=== PATIENT | female | born 1955 ===

== ENCOUNTER 2025-02-19 09:52 | Outpatient (AMB) | payer MEDICARE, SELFPAY ==
--- OUTSIDE RECORDS SUMMARY | 2025-02-19 11:13 | XMS_ITS | Clinical Summary ---
Author Organization [facility] [address] [place] [address] [place] [phone] Phone Care Team Providers Care Route Driver Salesperson Name Role Phone Doreen Gonzales MD Primary Care Provider [phone] Allergies Active Allergy Reactions Criticality Noted Date Comments Aspirin 11/22/2006 Ciprofloxacin Hcl Other 08/21/2024 Feet burning Lisinopril 08/21/2024 Sulfacetamide Sodium 11/22/2006 Other Reaction(s): Rash/Dermatitis Medications calcium carbonate/zach min D3 (CALCIUM 600 + D,3, ORAL) CALCIUM CARB-CHOLECALCI FEROL (CALCIUM 600 + D OR): Take 600 mg by mouth daily. Active loratadine (CLARITIN ORAL) Take by mouth as needed. Active fluticasone propionate (FLONASE NASL) None Entered Ac tive omega-3 acid ethyl esters (LOVAZA) 1 gram capsule Take 1,000 mg by mouth daily. Active imiquimod (ALDARA) 5 % cream Apply 1 packet topically 5 (five) times a week. 07/22/19 25 Active amLODIPine (NORVASC) 10 mg tablet Take 1 tablet (10 mg total) by mouth 1 (one) time each day. 90 tablet 1 08/21/19 25 Active bisacodyL (DULCOLAX) 5 mg EC tablet Take 2 tablets by mouth right before beginning bowel prep. See instructions provided by the office 2 tablet 09/17/19 25 Active polyethylene glycol (Golytely) 236-22.74-6.74 -5.86 gram solution Take 4L by mouth once for one dose. May substitue any PEG. Starting at 6PM the night before your procedure drink 1 8oz glasses at your own pace until you complete half of the gallon. Finish 2nd half of the gallon 5 hours before your procedure. 4000 mL 09/17/19 25 Active losartan-hydro CHLOROthiazide (HYZAAR) 100-12.5 mg per tablet TAKE 1 TABLET BY MOUTH EVERY DAY 90 tablet 1 01/21/20 25 Active atorvastatin (LIPITOR) 20 mg tablet TAKE 1 TABLET (20 MG TOTAL) BY MOUTH ONE TIME EACH DAY 90 tablet 1 02/14/20 25 Active atorvastatin (LIPITOR) 20 mg tablet Take 1 tablet (20 mg total) by mouth 1 (one) time each day. 90 tablet 1 08/21/19 25 025 Discontinued Active Problems Problem Noted Date Diagnosed Date Basal cell carcinoma 08/21/2024 Allergic rhinitis 08/21/2024 Colon polyp 08/21/2024 Hypercholesterolemia 08/21/2024 Primary hypertension 04/27/2023 Supraventricular tachycardia (CMS/HCC V24) 05/31 Skin cancer 05/31/2021 Overview (04/17/2024): nose Encounters Date Type Department Care Team Description 01/13/2025 Telephone Gastroenterology - [place] [facility] 175 [facility] [address] [place] [address] Nick Rayo DO Special Procedure 12/26/2024 Telephone Adult Medicine [address] [phone] Doreen Gonzales MD Irregular Heart Beat 12/10/2024 1:45 PM EDT - 12/10/2024 11:59 PM EDT Hospital Encounter Radiology Department - [address] [phone] Abnormal mammogram Discharge Disposition: Home or Self Care 11/28/2024 9:38 AM EDT - 11/28/2024 11:59 PM EDT Hospital Encounter Radiology Department - [address] [phone] Encounter for screening mammogram for breast cancer Discharge Disposition: Home or Self Care from Last 3 Months Immunizations Name Administration Dates Next Due COVID-19 (Moderna/Spikevax) 12yo and older 12/11/2022,03/09/2022 Influenza trivalent, 0.5mL ( Fluad) 65yo and older 05/04/2023,03/29/2022,03/14/2021,03/11,04/07/2019 Influenza trivalent, 0.5mL, preservative free (Fluarix; FluLaval; Fluzone) ages 6mo and older (Afluria) 3 years and older 04/05/2018,04/20/2017,04/23/2016,04/20 Pfizer SARS-CoV-2 COVID-19, mRNA, LNP-S, preservative free 03/13/2024 Pneumococcal polysaccharide 23 valent (Pneumovax 23) 2yo and older 08/05/2020 Respiratory syncytial virus (RSV), unspecified 07/13/2023 Td Tetanus diptheria (Tdvax) 7yo and older 12/27/2000 Surgical History Surgery Date Site/Laterality Comments OTHER SURGICAL HISTORY PROCEDURE: 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 TIP/OTH AR UP TO 2 CM; COMMENT: on nose 2004 for skin cancer basal cell OTHER SURGICAL HISTORY PROCEDURE: ARTHROSCOPY PROCEDURE NEC; COMMENT: basal cell ca on ankle BREAST SURGERY PROCEDURE: OK UNLISTED PROCEDURE BREAST; COMMENT: removal of lt sebasceous cyst-scar OTHER SURGICAL HISTORY PROCEDURE: OK GRAFT COMPOSITE W/PRIMARY CLOSURE DONOR AREA; COMMENT: nose, left eye APPENDECTOMY PROCEDURE: OK APPENDECTOMY Medical History Medical History Date Comments Other and unspecified ovarian cyst DX:Other and unspecified ovarian cyst; COMMENT: non malignant Personal history of colonic polyps DX:Personal history of colonic polyps; COMMENT: flat polyp Skin cancer DX:Skin cancer; COMMENT: nose History of other specified c onditions presenting hazards to health DX:History of other speci fied conditions presenting hazards to health; COMMENT: basal cell ca-nose,legs x 2 & face Supraventricular tachycardia (CMS/HCC V24) DX:Supraventricular tachycardia (HCC) Family History Medical History Relation Name Comments Diabetes Father Heart failure Father at 52 Breast cancer Neg Hx Relation Name Status Comments Father Mother Social History Tobacco Use Types Packs/Day Years Used Date Smoking Tobacco: Former Cigarettes Smokeless Tobacco: Never Tobacco Cessation:Counseling Given: Not Answered Alcohol Use Standard Drinks/Week Comments Yes 0 (1 standard drink = 0.6 oz pur e alcohol) Comments Unknown Sex and Gender Information Value Date Recorded Sex Assigned at Not on file Legal Sex Female 2:02 PM EST Gender Identity Not on file Sexual Orientation Not on file Obstetrics History Para Term AB IAB SAB Ectopic Multiple Livin g Live Births 0 0 0 Last Filed Vital Signs Vital Sign Reading Time Taken Comments Blood Pressure 120/70 08/21/2024 10:29 AM EST Pulse 76 08/21/2024 10:29 AM EST Temperature 36.6 C (97.9 F) 08/21/2024 10:29 AM EST Respiratory Rate 14 08/21/2024 10:29 AM EST Oxygen Saturation - - Inhaled Oxygen Concentration - - Weight 71.7 kg (158 lb) 08/21/2024 10:29 AM EST Height 170.2 cm (5' 7 ) 08/21/2024 10:29 AM EST Body Mass Index 24.75 08/21/2024 10:29 AM EST Plan of Treatment Upcoming Encounters Date Type Department Care Team (Late st Contact Info) Description 02/19/2025 2:30 PM EDT Office Visit Adult Medicine [address] [phone] Doreen Gonzales MD [address] [place] [phone] Health Maintenance Due Date Last Done Comments Hepatitis A Vaccines (1 of 2 - Risk 2-dose series) 1972 Hepatitis B Vaccines (1 of 3 - Risk 3-dose series) 2013 RSV Immunization Adult Patients (1 - Risk 60-74 years 1-dose series) 2013 07/13/2023 Zoster Vaccines (2 of 2) 09/20/2018 07/26/2018, 10/2013 Colorectal Cancer Screening: Stool Based Tests (FOBT/FIT) 06/10/2022 Hepatitis C Screening 06/10/2022 Osteoporosis Screening (Bone Density Screening) 06/10/2022 Social Influencers of Health Screening 06/10/2022 DTaP,Tdap,and Td Vaccines (4 - Td or Tdap) 06/06/2023 06/06/2013, 04/26/2003, 12/27/2000 COVID-19 Vaccine ( season) 2024 03/13/2024, 04/09/2023, 12/11/2022, Additional history exists Depression Screening 07/02/2024 07/09/2023 Falls Risk Assessment 07/09/2024 07/09/2023 Medicare Annual Wellness Visit 07/09/2024 07/09/2023 Hypertension/CHF/CAD Annual BMP Blood Test 02/05/2025 02/06/2024, 02/06/2024 Influenza Vaccine (#1) 2025 , 05/04/2023, 03/29/2022, Additional history exists Breast Cancer Screening 12/10/2026 12/11/19, 11/28/2024, 11/19/2023, Additional history exists Cholesterol Screening (Lipid Panel) 02/05/2029 02/06/2024, 02/06/2024 Pneumococcal Vaccine: 50+ Years Completed 08/05/2020, 07/26/2018 RSV Immunization Patients Under 20 months Aged Out 07/13/2023 No longer eligible based on patient's age to complete this topic HIB Vaccines Aged Out No longer eligi ble based on patient's age to complete this topic HPV Vaccines Aged Out No longer eligi ble based on patient's age to complete this topic IPV Vaccines Aged Out No longer eligi ble based on patient's age to complete this topic MMR Vaccines Aged Out No longer eligi ble based on patient's age to complete this topic Meningococcal ACWY Vaccine Aged Out N o longer eligible based on patient's age to complete this topic Meningococcal B Vaccine Aged Out No l onger eligible based on patient's age to complete this topic Varicella Vaccines Aged Out No longer eligible based on patient's age to complete this topic Procedures Procedure Name Priority Date/Time Associated Diagnosis Comments MG MAMMO DIGITAL DIAGNOSTIC W GUSTAVO LEFT Routine 12/10/2024 1:59 PM EDT Abnormal mammogram MG MAMMO DIGITAL SCREENING W GUSTAVO BILAT Routine 11/28/2024 9:49 AM EDT Encounter for screening mammogram for breast cancer ANNUAL BMP BLOOD TEST Routine 02/06/2024 LIPID PANEL Routine 02/06/2024 DEPRESSION SCREENING Routine 07/09/2023 FALLS RISK ASSESSMENT Routine 07/09/2023 from Last 3 Months or Most Recently Relevant to Health Maintenance Results * MG Mammo Digital Diagnostic w Gustavo Left (12/10/2024 1:59 PM EDT) Anatomical Region Laterality Modality Breast Left Mammography 12/10/2024 3:10 PM EDT Impressions 12/10/2024 3:13 PM EDT LEFT BREAST: Negative, no evidence of malignancy. Normal interval follow-up is recommended in 12 months. Findings and recommendations were discussed with the patient at the completion of the study. BREAST DENSITY: B - There are scattered areas of fibroglandular density. BI-RADS CATEGORY: 1 - NEGATIVE RECOMMENDATION: Mammography: Screening bilateral mammogram is recommended in 1 year. Mammo Location: [facility], [address] [place] [address], [phone], . -------- FINAL REPORT -------- Dictated By: León Garza Dictated Date: 12/10/2024 15:10 ET Assigned Physician: León Garza Reviewed and Electronically Signed By: León Garza Signed Date: 12/10/2024 15:13 ET Workstation ID: [id number] Transcribed By: Self Edit Transcribed Date: 12/10/2024 15:10 ET Narrative 12/10/2024 3:13 PM EDT HISTORY: Callback from screening for left breast finding. STUDY: Unilateral left diagnostic mammography with tomosynthesis and CAD TECHNIQUE: Unilateral left digital diagnostic mammography is obtained and read in conjunction with computer-aided detection. Tomosynthesis as well as 2-D C view imaging were obtained. Spot compression Tomosynthesis images were also obtained. COMPARISON: Comparison made to multiple prior, most recent November 28, 2024, and most remote October 23, 2012. LEFT BREAST: Previously suggested asymmetry in the upper breast on MLO view at approximately 7 cm from the nipple does not persist on today's images and most likely represented overlapping fibroglandular breast tissue. On today's images, the local parenchyma has similar appearance as multiple prior studies as far back as 2013. Procedure Note León Garza MD - 12/10/2024 HISTORY: Callback from screening for left breast finding. STUDY: Unilateral left diagnostic mammography with tomosynthesis and CAD TECHNIQUE: Unilateral left digital diagnostic mammography is obtained andre in conjunction with computer-aided detection. Tomosynthesis as wellas 2-D C view imaging were obtained. Spot compression Tomosynthesis imageswere also obtained. COMPARISON: Comparison made to multiple prior, most recent November 28, 2024,and most remote October 23, 2012. LEFT BREAST: Previously suggested asymmetry in the upper breast on MLOview at approximately 7 cm from the nipple does not persist on today'simages and most likely represented overlapping fibroglandular breasttissue. On today's images, the local parenchyma has similar appearance asmultiple prior studies as far back as 2013. IMPRESSION: LEFT BREAST: Negative, no evidence of malignancy. Normal intervalfollow-up is recommended in 12 months. Findings and recommendations were discussed with the patient at thecompletion of the study. BREAST DENSITY: B - There are scattered areas of fibroglandular density. BI-RADS CATEGORY: 1 - NEGATIVE RECOMMENDATION: Mammography: Screening bilateral mammogram is recommended in 1 year. Mammo Location: [facility], [address] [place] [address], [id number], . -------- FINAL REPORT -------- Dictated By: León Garza Dictated Date: 12/10/2024 15:10 ET Assigned Physician: León Garza Reviewed and Electronically Signed By: León Garza Signed Date: 12/10/2024 15:13 ET Workstation ID: [id number] Transcribed By: Self Edit Transcribed Date: 12/10/2024 15:10 ET Doreen Gonzales MD IMG BI PROCEDURES Final Result * (ABNORMAL) MG Mammo Digital Screening w Gustavo bilat (11/28/2024 9:49 AM EDT) Anatomical Region Laterality Modality Breast Bilateral Mammography 11/28/2024 5:22 PM EDT Impressions 11/28/2024 5:31 PM EDT Focal asymmetry in the left upper breast visualized on MLO view. Additional evaluation is recommended with spot compression MLO view, 4 field straight lateral view as well as with ultrasound. We will contact the patient for the arrangements. BI-RADS CATEGORY: 0 - INCOMPLETE - NEED ADDITIONAL IMAGING EVALUATION RECOMMENDATION: Additional left breast imaging recommended. Mammo Location: [facility], [address] [place] [address], [phone], . -------- FINAL REPORT -------- Dictated By: Ella Trivedi Dictated Date: 11/28/2024 17:22 ET Assigned Physician: Ella Trivedi Reviewed and Electronically Signed By: Ella Trivedi Signed Date: 11/28/2024 17:31 ET Workstation ID: [id number] Transcribed By: Self Edit Transcribed Date: 11/28/2024 17:22 ET Narrative 11/28/2024 5:31 PM EDT Bilateral screening mammogram. CLINICAL: 69 years old, Female, routine annual exam. COMPARISON: Prior mammograms, latest from 11/19/2023. TECHNIQUE: Bilateral MLO and CC views were obtained digitally with 2-D C views and 3-D mammogram (digital breast tomosynthesis). Computer-aided detection was utilized in evaluation of this exam (CAD). FINDINGS: Left MLO view revealed focal asymmetry in the upper breast probably located slightly medially to the nipple There is no evidence of other suspicious mass or architectural distortion. No worrisome calcifications are evident. BREAST DENSITY: B - There are scattered areas of fibroglandular density. Procedure Note Ella Trivedi MD - 11/28/2024 Bilateral screening mammogram. CLINICAL: 69 years old, Female, routine annual exam. COMPARISON: Prior mammograms, latest from 11/19/2023. TECHNIQUE: Bilateral MLO and CC views were obtained digitally with 2-D Cviews and 3-D mammogram (digital breast tomosynthesis). Computer-aideddetection was utilized in evaluation of this exam (CAD). FINDINGS: Left MLO view revealed focal asymmetry in the upper breast probablylocated slightly medially to the nipple There is no evidence of other suspicious mass or architectural distortion.No worrisome calcifications are evident. BREAST DENSITY: B - There are scattered areas of fibroglandular density. IMPRESSION: Focal asymmetry in the left upper breast visualized on MLO view.Additional evaluation is recommended with spot compression MLO view, 4field straight lateral view as well as with ultrasound. We will contactthe patient for the arrangements. BI-RADS CATEGORY: 0 - INCOMPLETE - NEED ADDITIONAL IMAGING EVALUATION RECOMMENDATION: Additional left breast imaging recommended. Mammo Location: [facility], [address] [place] [address], [phone], . -------- FINAL REPORT -------- Dictated By: Ella Trivedi Dictated Date: 11/28/2024 17:22 ET Assigned Physician: Ella Trivedi Reviewed and Electronically Signed By: Ella Trivedi Signed Date: 11/28/2024 17:31 ET Workstation ID: [id number] Transcribed By: Self Edit Transcribed Date: 11/28/2024 17:22 ET Doreen Gonzales MD IMG BI PROCEDURES Final Result * Annual BMP Blood Test (02/06/2024) Pathologist [facility] Annual BMP Blood Test Abstracted Historical Provider HEALTH MAINTENANCE Final Result * Lipid panel (02/06/2024) LDL/HDL Ratio 2 0 - 4 Triglycerides 129 0 - 150 mg/dL Cholesterol 131 0 - 200 mg/dL HDL 60 >=40 mg/dL LDL Cholesterol 46 0 - 100 mg/dL Blood Venous blood specimen / Unknown Historical Provider LAB BLOOD ORDERABLES Cleo l Result * Falls Risk Assessment (07/09/2023) Falls Risk Assessment Abstracted Historical Provider HEALTH MAINTENANCE Final Result * Depression Screening (07/09/2023) Depression Screening Abstracted Historical Provider HEALTH MAINTENANCE Final Result from Last 3 Months or Most Recently Relevant to Health Maintenance Insurance [employer] MED[employer]AGE Care Teams Route Driver Salesperson Relationship Specialty Start Date End Date Doreen Gonzales MD [address] [place] [phone] PCP - General Internal Medicine 03/10/22
== END 2025-02-19 13:21 | disposition home or self-care (01) ==
LOC: HO.HMGAL 09:52
PROVIDERS: PCP Internal Medicine; Visit Provider Registered Nurse Emergency
DX: J30.89 Other allergic rhinitis (principal)
CPT/HCPCS: 95117; 95165

== ENCOUNTER 2025-03-25 10:06 | Outpatient (AMB) | payer MEDICARE, SELFPAY ==
--- OUTSIDE RECORDS SUMMARY | 2025-03-25 12:19 | XMS_ITS | Clinical Summary ---
Author Organization [facility] [address] [place] [address] [place] [phone] Phone Care Team Providers Care Solar Sales Consultant Name Role Phone Doreen Gonzales MD Primary Care Provider [phone] Allergies Active Allergy Reactions Criticality Noted Date Comments Aspirin 11/22/2006 Ciprofloxacin Hcl Other 08/21/2024 Feet burning Lisinopril 08/21/2024 Sulfacetamide Sodium 11/22/2006 Other Reaction(s): Rash/Dermatitis Medications calcium carbonate/vitam in D3 (CALCIUM 600 + D,3, ORAL) CALCIUM CARB-CHOLECALCIF SILVINO (CALCIUM 600 + D OR): Take 600 mg by mouth daily. Active loratadine (CLARITIN ORAL) Take by mouth as needed. Active fluticasone propionate (FLONASE NASL) None Entered Ac tive omega-3 acid ethyl esters (LOVAZA) 1 gram capsule Take 1,000 mg by mouth daily. Active imiquimod (ALDARA) 5 % cream Apply 1 packet topically 5 (five) times a week. 5 Active bisacodyL (DULCOLAX) 5 mg EC tablet Take 2 tablets by mouth right before beginning bowel prep. See instructions provided by the office 2 tablet 5 Active Additional Information Patient not taking.Reported on 02/19/2025 polyethylene glycol (Golytely) 236-22.74-6.74 -5.86 gram solution Take 4L by mouth once for one dose. May substitue any PEG. Starting at 6PM the night before your procedure drink 1 8oz glasses at your own pace until you complete half of the gallon. Finish 2nd half of the gallon 5 hours before your procedure. 4000 mL 5 Active Additional Information Patient not taking.Reported on 02/19/2025 losartan-hydroC HLOROthiazide (HYZAAR) 100-12.5 mg per tablet TAKE 1 TABLET BY MOUTH EVERY DAY 90 tablet 1 5 Active atorvastatin (LIPITOR) 20 mg tablet TAKE 1 TABLET (20 MG TOTAL) BY MOUTH ONE TIME EACH DAY 90 tablet 1 5 Active amLODIPine (NORVASC) 10 mg tablet Take 1 tablet (10 mg total) by mouth 1 (one) time each day. 90 tablet 1 5 Active Active Problems Problem Noted Date Diagnosed Date Basal cell carcinoma 08/21/2024 Allergic rhinitis 08/21/2024 Colon polyp 08/21/2024 Hypercholesterolemia 08/21/2024 Primary hypertension 04/27/2023 Skin cancer 05/31/2021 Overview (04/17/2024): nose Resolved Problems Problem Noted Date Diagnosed Date Resolved Date Supraventricular tachycardia (CMS/HCC V24) 05/31/2021 02/19/2025 Encounters Date Type Department Care Team Description 02/19/2025 2:30 PM EDT Office Visit Adult Medicine [address] [phone] Doreen Gonzales MD Primary hypertension (Primary Dx); Hypercholesterolemia; Need for tetanus, diphtheria, and acellular pertussis (Tdap) vaccine 01/13/2025 Telephone Gastroenterology - [place] [facility] [address] [facility] [address] [place] [address] Nick Rayo DO 12/26/2024 Telephone Adult Medicine [address] [phone] Doreen Gonzales MD from Last 3 Months Immunizations Name Administration Dates Next Due COVID-19 (Moderna/Spikevax) 12yo and older 12/11/2022,03/09/2022 COVID-19 (Pfizer/Comirnaty) 12yo and older 03/13/2024 Diptheria & Tetanus, 6wks to less than 7yo 04/26/2003 Influenza trivalent, 0.5mL ( Fluad) 65yo and older 05/04/2023,03/29/2022,03/14/2021,03/11,04/07/2019 Influenza trivalent, 0.5mL, preservative free (Fluarix; FluLaval; Fluzone) ages 6mo and older (Afluria) 3 years and older 04/05/2018,04/20/2017,04/23/2016,04/20 Pfizer (ages 12 & older) Biv alent, COVID-19 12/11/2022,03/09/2022 Pfizer SARS-CoV-2 COVID-19, mRNA, LNP-S, preservative free 03/13/2024 Pneumococcal conjugate 13 va lent (Prevnar 13, PCV13) 2mo and older 07/26/2018 Pneumococcal polysaccharide 23 valent (Pneumovax 23) 2yo and older 08/05/2020 RSV, bivalent, protein subun it RSVpreF, 0.5mL, Preservative Free (Arexvy) 60yo and older 07/13/2023 Respiratory syncytial virus (RSV), unspecified 07/13/2023 Td Tetanus diptheria (Tdvax) 7yo and older 12/27/2000 Td, Unspecified 12/27/2000 Tdap Tetanus diptheria acell ular pertussis (Boostrix; Adacel) 7yo and older 06/06/2013 Zoster Live 10/04/2013 Zoster recombinant (Shingrix ) 19yo and older 07/26/2018 Surgical History Surgery Date Site/Laterality Comments OTHER SURGICAL HISTORY PROCEDURE: 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 TIP/OTH AR UP TO 2 CM; COMMENT: on nose 2004 for skin cancer basal cell OTHER SURGICAL HISTORY PROCEDURE: ARTHROSCOPY PROCEDURE NEC; COMMENT: basal cell ca on ankle BREAST SURGERY PROCEDURE: NH UNLISTED PROCEDURE BREAST; COMMENT: removal of lt sebasceous cyst-scar OTHER SURGICAL HISTORY PROCEDURE: NH GRAFT COMPOSITE W/PRIMARY CLOSURE DONOR AREA; COMMENT: nose, left eye APPENDECTOMY PROCEDURE: NH APPENDECTOMY Medical History Medical History Date Comments [...] Years Used Date Smoking Tobacco: Former Cigarettes Passive Smoke Exposure: Never Smokeless Tobacco: Never Tobacco Cessation:Counseling Given: Not Answered Alcohol Use Standard Drinks/Week Comments Yes 0 (1 standard drink = 0.6 oz pur e alcohol) Comments No Sex and Gender Information Value Date Recorded Sex Assigned at Not on file Legal Sex Female 2:02 PM EST Gender Identity Not on file Sexual Orientation Not on file Obstetrics History Para Term AB IAB SAB Ectopic Multiple Livin g Live Births 0 0 0 Last Filed Vital Signs Vital Sign Reading Time Taken Comments Blood Pressure 124/76 02/19/2025 2:41 PM EDT Pulse 82 02/19/2025 2:41 PM EDT Temperature 36.4 C (97.5 F) 02/19/2025 2:41 PM EDT Respiratory Rate 16 02/19/2025 2:41 PM EDT Oxygen Saturation - - Inhaled Oxygen Concentration - - Weight 70.3 kg (155 lb) 02/19/2025 2:41 PM EDT Height 170.2 cm (5' 7 ) 02/19/2025 2:41 PM EDT Body Mass Index 24.28 02/19/2025 2:41 PM EDT Plan of Treatment Upcoming Encounters Date Type Department Care Team (Late st Contact Info) Description 06/17/2025 11:15 AM EST Appointment Bone Density [address] [phone] 08/25/2025 1:30 PM EST Office Visit Adult Medicine [address] [phone] Doreen Gonzales MD [address] [place] [address] Health Maintenance Due Date Last Done Comments Hepatitis A Vaccines (1 of 2 - Risk 2-dose series) 1972 Hepatitis B Vaccines (1 of 3 - Risk 3-dose series) 2013 Zoster Vaccines (2 of 2) 09/20/2018 07/26/2018, 04/0 10/2013 Colorectal Cancer Screening: Stool Based Tests (FOBT/FIT) 06/10/2022 Hepatitis C Screening 06/10/2022 Osteoporosis Screening (Bone Density Screening) 06/10/2022 Social Influencers of Health Screening 06/10/2022 DTaP,Tdap,and Td Vaccines (5 - Td or Tdap) 06/06/2023 06/06/2013, 04/26/2003, 12/27/2000, Additional history exists Depression Screening 07/02/2024 07/09/2023 Falls Risk Assessment 07/09/2024 07/09/2023 Medicare Annual Wellness Visit 07/09/2024 07/09/2023 Hypertension/CHF/CAD Annual BMP Blood Test 02/05/2025 02/06/2024, 02/06/2024 COVID-19 Vaccine ( season) 2025 03/13/2024, 03/13/2024, 04/09/2023, Additional history exists Influenza Vaccine (#1) 2025 , 05/04/2023, 03/29/2022, Additional history exists Breast Cancer Screening 12/10/2026 12/11/19, 11/28/2024, 11/19/2023, Additional history exists Cholesterol Screening (Lipid Panel) 02/05/2029 02/06/2024, 02/06/2024 Pneumococcal Vaccine: 50+ Years Completed 08/05/2020, 07/26/2018 RSV Immunization Adult Patients Completed 07/13/2023, 07/13/2023 RSV Immunization Patients Under 20 months Aged [...] Routine 12/10/2024 1:59 PM EDT Abnormal mammogram ANNUAL BMP BLOOD TEST Routine 02/06/2024 LIPID [...] is recommended in 1 year. Mammo Location: [facility], [address] [place] [address], [id number], . -------- FINAL REPORT -------- Dictated By: León Garza Dictated Date: 12/10/2024 15:10 ET Assigned Physician: León Garza Reviewed and Electronically Signed By: León Garza Signed Date: 12/10/2024 15:13 ET Workstation ID: [id number] Transcribed By: Self Edit Transcribed Date: 12/10/2024 [...] Unilateral left digital diagnostic mammography is obtained andread in conjunction with computer-aided detection. Tomosynthesis as [...] is recommended in 1 year. Mammo Location: [facility], [address] [place] [address], [id number], . -------- FINAL REPORT -------- Dictated By: León Garza Dictated Date: 12/10/2024 15:10 ET Assigned Physician: León Garza Reviewed and Electronically Signed By: León Garza Signed Date: 12/10/2024 15:13 ET Workstation ID: [id number] Transcribed By: Self Edit Transcribed Date: 12/10/2024 15:10 ET Result [facility] Doreen Gonzales MD IMG BI PROCEDURES Final Result * Annual BMP Blood Test (02/06/2024) [facility] Annual BMP Blood Test Abstracted Result [facility] Provider HEALTH MAINTENANCE Final Result * Lipid panel (02/06/2024) [facility] LDL/HDL Ratio 2 0 - 4 Triglycerides 129 0 - 150 mg/dL Cholesterol 131 0 - 200 mg/dL HDL 60 >=40 mg/dL LDL Cholesterol 46 0 - 100 mg/dL Blood Venous blood specimen / Unknown Result [facility] Provider LAB BLOOD ORDERABLES Cleo l Result * Falls Risk Assessment (07/09/2023) [facility] Falls Risk Assessment Abstracted Result [facility] Provider HEALTH MAINTENANCE Final Result * Depression Screening (07/09/2023) [facility] Depression Screening Abstracted Result [facility] Provider HEALTH MAINTENANCE Final Result from Last 3 Months or Most Recently Relevant to Health Maintenance Insurance [employer] MEDICARE ADVANTAGE Care Teams Solar Sales Consultant Relationship Specialty Start Date End Date Doreen Gonzales MD [address] [place] [phone] PCP - General Internal Medicine 03/10/22
== END 2025-03-25 10:23 | disposition home or self-care (01) ==
LOC: HO.HMGAL 10:06
PROVIDERS: PCP Internal Medicine; Visit Provider Registered Nurse Emergency
DX: J30.89 Other allergic rhinitis (principal)
CPT/HCPCS: 95117; 95165

== ENCOUNTER 2025-04-22 10:03 | Outpatient (AMB) | payer MEDICARE, SELFPAY | END 2025-04-22 10:04 | disposition home or self-care (01) | LOC: HO.HMGAL 10:03 | PROVIDERS: PCP Transplant Surgery; Visit Provider Registered Nurse Emergency | DX: J30.89 Other allergic rhinitis (principal) | CPT/HCPCS: 95117; 95165 ==